=== PATIENT | male | born 1990 ===

== ENCOUNTER 2020-10-20 13:16 | Emergency (ER) | payer SELFPAY ==
[2020-10-20] MEDS ORDERED: DEXTROSE 50% IN WATER (25GM) 50 ML SYRINGE IV ONE (14:34)
[2020-10-20 16:01] VITALS: BP 150/88
--- NOTE | 2020-10-20 16:45 | XRay Report ---
RIGHT FOREARM 2 VIEWS INDICATION / CLINICAL INFORMATION: Injury with right forearm pain. COMPARISON: None available. FINDINGS: BONES / JOINT(S): No acute fracture or subluxation. No significant arthritis. SOFT TISSUES: No significant abnormality. ADDITIONAL FINDINGS: None. Signer Name: Glen Bailey MD Signed: 10/20/2020 4:41 PM Workstation Name: [id number]
--- NOTE | 2020-10-20 17:06 | Emergency Department Report ---
ED General Adult HPI - General Chief complaint: Extremity Injury, Upper Stated complaint: RT ARM Time Seen by Provider: 10/20/20 16:58 Source: patient Mode of arrival: Ambulatory Limitations: No Limitations - History of Present Illness Initial comments: 30-year-old [id number] male patient presents to the emergency department with complaints of right arm pain starting today. Patient states the pain began after a box of roof shingles fell onto his forearm. He was evaluated at an outside clinic and referred to the emergency department for further evaluation. He has immobilized the right forearm in a sling. No medications prior to arrival. Denies headache, neck pain, shoulder pain, wrist pain, hand pain, paresthesias, numbness, weakness. Denies all other complaints at this time. Severity scale (0 -10): 8 - Related Data Previous Rx's Medication Instructions Recorded Last Taken Type Naproxen 500 mg PO BID #20 tablet 10/20/20 Unknown Rx Allergies Allergy/AdvReac Type Severity Reaction Status Date / Time No Known Allergies Allergy Unverified 10/20/20 15:57 ED Review of Systems ROS: Stated complaint: RT ARM Other details as noted in HPI Other: CARDIOVASCULAR: Negative for chest pain. PULMONARY: Negative for dyspnea. GASTROINTESTINAL: Negative for abdominal pain. MUSCULOSKELETAL: Positive for right arm pain. NEUROLOGICAL: Negative for headache. INTEGUMENTARY: Negative for ecchymosis. ED Past Medical Hx - Past Medical History Previous Medical History?: No - Surgical History Past Surgical History?: No - Medications Home Medications: Home Medications Medication Instructions Recorded Confirmed Last Taken Type Naproxen 500 mg PO BID #20 tablet 10/20/20 Unknown Rx ED Physical Exam - General Limitations: No Limitations - Other Other exam information: General: Awake, appropriately interactive, no acute distress. Neck: Supple. Full range of motion intact. Cardiovascular: Normal peripheral perfusion. Pulmonary: No respiratory distress. Patient is speaking normally without use of accessory muscles. Skin: No apparent rashes or lesions. Neurological: No facial asymmetry. Speech is clear. Follows commands. Patient is alert and oriented. Musculoskeletal: Tenderness to palpation along the proximal right forearm with mild soft tissue swelling. No obvious deformity or dislocation. No tenderness of the olecranon. Full range of motion of the elbow is intact. Distal neurovascular and motor/sensory function is intact. Compartments are soft. Pain is appropriately proportional to exam findings. Psych: Cooperative. Appropriate mood and affect. ED Course Vital Signs 10/20/20 15:59 Temperature 98.4 F Pulse Rate 77 Respiratory 18 Rate Blood Pressure 150/88 [Right] O2 Sat by Pulse 99 Oximetry ED Medical Decision Making - Medical Decision Making Differential diagnosis including but not limited to: sprain, strain, fracture, contusion, dislocation, compartment syndrome On reevaluation, patient remains stable. Repeat neurovascular exam remains intact. Compartments remain soft and pain is controlled. X-rays without acute process. History and exam findings consistent with contusion of the forearm. No clinical indication for further diagnostic work-up on an emergent basis at this time. Patient will be discharged home with appropriate analgesics and referred to primary care provider for close outpatient follow-up. Patient expressed understanding and is agreeable to plan of care. RICE precautions discussed. Strict return precautions provided. Repeat exam is unremarkable and benign. History, exam, diagnostic testing, and current condition do not suggest worrisome pathology to warrant further testing, continued ED treatment, admission, or surgical evaluation at this point. Given the low probability of a significant medical illness, it would be more likely to result in harm than benefit to perform further testing at this stage. Discussed findings, presumptive diagnosis, need for follow-up and specific signs/symptoms that should prompt immediate return to the emergency department. Instructions were explained in detail to the patient in addition to giving written discharge information. Patient expressed understanding and was given the opportunity to ask questions, all of which were satisfactorily answered prior to discharge home. Critical care attestation.: If time is entered above; I have spent that time in minutes in the direct care of this critically ill patient, excluding procedure time. ED Disposition Clinical Impression: Contusion of right forearm, initial encounter Disposition: DC-01 TO HOME OR SELFCARE Is pt being admited?: No Does the pt Need Aspirin: No Condition: Stable Instructions: Contusion, [id number] Additional Instructions: [place] Tylenol cada 4 horas segn sea necesario para el dolor. [place] Naprosyn dos veces al da con alimentos segn sea necesario para el dolor. Aplique hielo en el shraddha afectada segn sea necesario para la hinchazn. Use cabestrillo segn sea necesario para mayor comodidad. Avance gradualmente la actividad fsica lentamente segn la tolerancia. Pb un seguimiento con el mdico de atencin primaria esta semana. Llame maana para programar jose juan cooper. Consulte la informacin de referencia a continuacin. Regrese al departamento de emergencias de inmediato si los sntomas son nuevos o si empeoran. Prescriptions: Naproxen 500 mg PO BID #20 tablet Referrals: SAMIR QUICK MD [Staff Physician] - 3-5 Days [facility] [Provider Group] - 3-5 Days Forms: Work/School Release Form(ED) Time of Disposition: 17:05
== END 2020-10-20 17:10 | disposition home or self-care (01) ==
LOC: ED 13:16
DX: S50.11XA Contusion of right forearm, initial encounter (principal); Z79.899 Other long term (current) drug therapy; X58.XXXA Exposure to other specified factors, initial encounter; Y93.89 Activity, other specified; Y92.89 Other specified places as the place of occurrence of the external cause; Y99.8 Other external cause status